=== PATIENT | male | born 1985 | race Caucasian/White ===

== ENCOUNTER 2022-06-04 20:40 | Emergency (ER) | payer BC, SELFPAY ==
[2022-06-04] VITALS (7 sets, daily range): BP systolic 107–163; BP diastolic 53–74; PULSE 68–104; RESP 18; TEMP 36.7; O2SAT 96–100; BMI 27.3
--- NOTE | 2022-06-04 20:50 | ED.GENADULT ---
HPI - General Adult General Chief complaint: Dizziness Stated complaint: Elevated heart rate, Dizzy Time Seen by Provider: 06/04/22 20:45 Source: patient and family Mode of arrival: Ambulatory Limitations: no limitations History of Present Illness HPI narrative: Otherwise healthy 36-year-old male who is here for evaluation of elevated heart rate and feeling dizzy. Symptoms did start after he smoked some marijuana. He used marijuana last evening as well and did not have any the symptoms he presents with today. Smoking marijuana is not usual for him. He denies chest pain. No shortness of breath. Is nauseous. Related Data Allergies Allergy/AdvReac Type Severity Reaction Status Date / Time Penicillins Allergy Severe Anaphylaxis Verified 06/04/22 21:52 Review of Systems Review of Systems ROS Unobtainable: All systems reviewed & are unremarkable except as noted in HPI and below Patient History Medical History Healthy adult Social History Smoking Status: Never smoker Exam Initial Vital Signs Initial Vital Signs: Vital Signs Pulse Rate 94 H 06/04/22 21:08 Pulse Oximetry 96 06/04/22 21:08 Const General: No ill appearing HENMT Head: normal to inspection and normocephalic Resp Effort & Inspection: normal respiratory effort Auscultation: clear to auscultation bilaterally Cardio Rate: tachycardic Rhythm: regular rhythm Skin General: no rashes or lesions noted Neuro General: patient alert, patient awake, patient oriented x3 and moves all extremities Extrem General: normal to inspection and capillary refill normal Psych Appearance: grossly normal and well kempt Course Orders Ordered: ED Orders 06/04/22 20:45 EKG-12 Lead Stat 06/04/22 21:00 Basic Metabolic Panel Stat Complete Blood Count AUTO DIFF Stat Discontinued Medications Lorazepam (Lorazepam 2 Mg/Ml Inj) 0.5 mg IV NOW ONE Stop: 06/04/22 22:23 Last Admin: 06/04/22 22:34 Dose: 0.5 mg Documented By: ROSENDA Ondansetron HCl (Ondansetron 4 Mg/2 Ml Inj) 4 mg IV NOW ONE Stop: 06/04/22 21:47 Last Admin: 06/04/22 21:51 Dose: 4 mg Documented By: ROSENDA Vital Signs Vital signs: Vital Signs - 8 hr 06/04/22 21:14 06/04/22 21:08 06/04/22 21:30 Temperature 98.0 F Pulse Rate 104 H 94 H 98 H Respiratory Rate 18 Blood Pressure 163/74 H Pulse Oximetry 100 96 96 Oxygen Delivery Method Room Air 06/04/22 22:00 06/04/22 22:30 06/04/22 22:37 Temperature Pulse Rate 81 82 Respiratory Rate Blood Pressure 116/56 L Pulse Oximetry 96 96 Oxygen Delivery Method 06/04/22 22:37 06/04/22 23:00 06/04/22 23:00 Temperature Pulse Rate 74 68 Respiratory Rate Blood Pressure 107/53 L Pulse Oximetry 98 96 Oxygen Delivery Method Room Air Medical Decision Making Lab Data Lab results reviewed: Yes I reviewed the patient's lab results. Result diagrams: 06/04/22 21:00 06/04/22 21:00 Labs: Lab Results 06/04/22 06/04/22 Range/Units 21:00 21:00 WBC 10.6 (4.5-11.0) X10^3/uL RBC 5.24 (4.5-5.9) X10^6/uL Hgb 16.0 (13.5-17.5) g/dL Hct 47.6 (41-53) % MCV 90.8 (80-100) fL MCH 30.6 (26-34) PG MCHC 33.7 (30-36) % RDW 13.4 (11.6-14.8) % Plt Count 297 (150-400) X10^3/uL Neut % (Auto) 43.1 L (50-75) % Lymph % (Auto) 40.4 H (25-40) % [place] % (Auto) 12.7 (3-14) % Eos % (Auto) 3.4 (2-4) % Baso % (Auto) 0.4 (0-2) % Neut # (Auto) 4600 (5462-4593) /uL Lymph # (Auto) 4300 (7138-7918) /uL [place] # (Auto) 1300 H (0-900) /uL Eos # (Auto) 400 (0-450) /uL Baso # (Auto) 0 (0-100) /uL Sodium 138 (137-145) mmol/L Potassium 2.9 L (3.4-5.1) mmol/L Chloride 101 (98-107) mmol/L Carbon Dioxide 26 (22-32) mmol/L BUN 17 (9-20) mg/dL Creatinine 0.86 (0.66-1.25) mg/dL Estimated GFR > 60 (>60) mL/min BUN/Creatinine Ratio 19.8 (6-22) Glucose 120 H (70-100) mg/dL Calcium 8.4 (8.4-10.2) mg/dL MDM Narrative Medical decision making narrative: He did have improvement of symptoms after the above-stated therapies. I suspect that his presenting symptoms are the result of smoking marijuana. Once he was feeling better he was discharged home with return precautions. He expressed understanding and agreement. Discharge Plan Departure Patient Disposition: Home Clinical Impression: Palpitations Activity Restrictions/Additional Instructions: I do recommend that you try to get a good night sleep tonight. Your symptoms should improve with time. Return to the emergency department for any new or worsening symptoms. Visit Report Forms: Patient Portal/API
[2022-06-04] MEDS: ONDANSETRON 4 MG/2 ML INJ IV (21:51)
[2022-06-04 21:59] LABS: BUN Creatinine Ratio 19.8 (6-22); Blood Urea Nitrogen 17 mg/dL (9-20); Calcium 8.4 mg/dL (8.4-10.2); Carbon Dioxide 26 mmol/L (22-32); Chloride 101 mmol/L (98-107); Estimated Glomerular Filt Rate > 60 mL/min (>60); Glucose 120 mg/dL (70-100); HEMOLYSIS < 15 (0-50); Potassium 2.9 mmol/L (3.4-5.1); Sodium 138 mmol/L (137-145)
[2022-06-04 22:03] LABS: Add Manual Diff / Slide Review NO; Basophils Absolute Auto 0 /uL (0-100); Basophils Percent Auto 0.4 % (0-2); Eosinophils Absolute Auto 400 /uL (0-450); Eosinophils Percent Auto 3.4 % (2-4); Hematocrit 47.6 % (41-53); Lymphocytes Absolute Auto 4300 /uL (1100-4500); Lymphocytes Percent Auto 40.4 % (25-40); Mean Corpuscular HGB Conc 33.7 % (30-36); Mean Corpuscular Hemoglobin 30.6 PG (26-34); Mean Corpuscular Volume 90.8 fL (80-100); Monocytes Absolute Auto 1300 /uL (0-900); Monocytes Percent Auto 12.7 % (3-14); Neutrophils Absolute Auto 4600 /uL (1500-7000); Neutrophils Percent Auto 43.1 % (50-75); Platelet Count 297 X10^3/uL (150-400); Red Blood Cell Count 5.24 X10^6/uL (4.5-5.9); Red Cell Distribution Width 13.4 % (11.6-14.8); White Blood Cell Count 10.6 X10^3/uL (4.5-11.0)
[2022-06-04] MEDS: LORazepam 2 MG/ML INJ 0.5 MG IV (22:34)
== END 2022-06-04 23:16 | disposition home or self-care (01) ==
PROVIDERS: Emergency Provider Emergency Medicine
DX: R00.2 Palpitations (principal); R42 Dizziness and giddiness
CPT/HCPCS: 80048; 85025; 93005; 93010; 96374; 96375; 99284; J2060; J2405